=== PATIENT | female | born 1975 | race Caucasian/White ===

== ENCOUNTER 2018-03-18 09:57 | Emergency (ER) | payer BC, OTHER ==
[2018-03-18 10:02] VITALS: BMI 21.2
--- NOTE | 2018-03-18 10:33 | PDOC ---
History of Present Illness - General Chief Complaint: Nausea/Vomiting Stated Complaint: NAUSEA,VOMITING PREG? Time Seen by Provider: 03/18/18 10:03 - History of Present Illness Initial Comments: 03/18/18 10:30 42yo F hx vasovagal syncope presents to the ED with nausea and vomiting. Pt reports weeks of intermittent nausea and last night began to have vomiting. Reports 7-8 episodes of yellow NBNB emesis since last night after eating bread and cream cheese. with similar symptoms since 4 am. Pt reports gingerale helps with nausea. Feels pressure in epigastric and suprapubic area, not "pain but feels sensitive." Reports epigastric pain occurs only before emesis. No fevers or chills. No dysuria, or urgency. +frequency. Last BM yesterday. Denies other sxs of blurry vision, focal weakness/numbness, cp, sob, LE edema. +UPT here in the ED, pt states LMP was in January. Denies vaginal bleeding. Reports travel to in February, did not know she was at the time. Denies mosquito bites. Past History - Past Medical History Allergies/Adverse Reactions: Allergies Allergy/AdvReac Type Severity Reaction Status Date / Time No Known Allergies Allergy Verified 03/18/18 09:58 Home Medications: Ambulatory Orders NK [No Known Home Medication] 03/18/18 COPD: No Other medical history: VASOVAGAL - Suicide/Smoking/Psychosocial Hx Smoking History: Never smoked Have you smoked in the past 12 months: No Information on smoking cessation initiated: No Hx Alcohol Use: No Drug/Substance Use Hx: No Review of Systems - Review of Systems Comments:: 03/18/18 11:51 GENERAL/CONSTITUTIONAL: No fever or chills. No weakness. HEAD, EYES, EARS, NOSE AND THROAT: No change in vision. No ear pain or discharge. No sore throat. GASTROINTESTINAL: + nausea, vomiting, no diarrhea or constipation. +epigastric and suprapubic pain GENITOURINARY: No dysuria, +frequency. No vag bleeding. CARDIOVASCULAR: No chest pain or shortness of breath. RESPIRATORY: No cough, wheezing, or hemoptysis. MUSCULOSKELETAL: No joint or muscle swelling or pain. No neck or back pain. SKIN: No rash NEUROLOGIC: No headache, vertigo, loss of consciousness, or change in strength/ sensation. ENDOCRINE: No increased thirst. No abnormal weight change. HEMATOLOGIC/LYMPHATIC: No anemia, easy bleeding, or history of blood clots. ALLERGIC/IMMUNOLOGIC: No hives or skin allergy. *Physical Exam - Vital Signs Last Vital Signs Temp Pulse Resp BP Pulse Ox 98.3 F 86 20 105/77 100 03/18/18 09:57 03/18/18 09:57 03/18/18 09:57 03/18/18 09:57 03/18/18 09:57 - Physical Exam Comments: 03/18/18 11:52 GENERAL: Awake, alert, and fully oriented, in no acute distress EYES: PERRLA, EOMI, sclera anicteric, conjunctiva clear ENT: Nares patent, oropharynx clear without exudates. Moist mucosa NECK: Normal ROM, supple, no lymphadenopathy, JVD, or masses LUNGS: Breath sounds equal, clear to auscultation bilaterally. No wheezes, and no crackles HEART: Regular rate and rhythm, normal S1 and S2, no murmurs, rubs or gallops ABDOMEN: Soft, nontender, normoactive bowel sounds. No guarding, no rebound. No masses. : No CVAT. Pelvic deferred (no bleeding, lower abd ttp, pt preference) EXTREMITIES: Normal range of motion, no edema. No cords, erythema, or tenderness NEUROLOGICAL: Normal speech, cranial nerves intact, equal strength and sensation b/l SKIN: Warm, Dry, normal turgor, no rashes or lesions noted. Moderate Sedation - Procedure Monitoring Vital Signs: Procedure Monitoring Vital Signs Temperature 98.3 F 03/18/18 09:57 Pulse Rate 86 03/18/18 09:57 Respiratory Rate 20 03/18/18 09:57 Blood Pressure 105/77 03/18/18 09:57 O2 Sat by Pulse Oximetry (%) 100 03/18/18 09:57 ED Treatment Course - LABORATORY CBC & Chemistry Diagram: 03/18/18 11:11 03/18/18 11:11 Medical Decision Making - Medical Decision Making 03/18/18 12:02 42yo F presents to the ED with N/V, urinary frequency, epigastric and suprapubic discomfort found to be here in ED. Thus far, work up with UTI as well. It's possible pt has gastroenteritis as well as also with N /V. Plan for labs including lipase, quant HCG, TVUS, IVF, PO challenge, reassess. 03/18/18 14:28 Pt feels a lot better, tolerating PO Labs wnl, B-HCG 54K TVUS consistent with single IUP dated at 8 weeks, HR 179 Type and Screen A- with no antibodies Discussed with pt again if there was any vaginal bleeding or trauma Pt reports she did not know she was and bled 1 month ago and thought it was her period For this reason, will give pt socorro Reports 2 abortions in the past, both elective, prior to her last which was uncomplicated. Deny coming from [facility] All results explained to pt, she has follow up with her OB 1 week from today. 03/18/18 15:59 Pt s/p deny Feels much better. Clinically stable and well appearing I discussed the physical exam findings, ancillary test results and final diagnoses with the patient. I answered all of the patient's questions. The patient was satisfied with the care received and felt comfortable with the discharge plan and treatment plan. The patient will call their primary care physician within 24 hours to arrange follow-up and will return to the Emergency Department with any new, persistent or worsening symptoms. *DC/Admit/Observation/Transfer Diagnosis at time of Disposition: , Vomiting, UTI (urinary tract infection) - Discharge Dispostion Disposition: HOME Condition at time of disposition: Improved Decision to Admit order: No - Referrals - Patient Instructions Printed Discharge Instructions: DI for Vomiting -- Adult Additional Instructions: Follow up with your [facility] doctor within 1 week as scheduled Take the antibiotics as prescribed Drink plenty of fluids such as gatorade and stay hydrated Return to the emergency department if you have any new, worsening, or concerning symptoms - Post Discharge Activity - Attestations Physician Attestion: 03/18/18 16:12 I, Dr. Miguelito Hollins MD, attest that this document has been prepared under my direction and personally reviewed by me in its entirety. I further attest, that it accurately reflects all work, treatment, procedures and medical decision -making performed by me.
[2018-03-18] MEDS ORDERED: ONDANSETRON 4 MG/2 ML VIAL IVPUSH ONE (10:35)
[2018-03-18] MEDS ORDERED: SODIUM CHLORIDE 1,000 ML IV STA (10:35)
[2018-03-18 10:43] LABS: PH,URINE 5.5 (4.5-8); URINE APPEARANCE Clear; URINE BILIRUBIN 1+ (NEGATIVE); URINE COLOR Amber; URINE GLUCOSE (UA) Negative (NEGATIVE); URINE KETONE 2+ (NEGATIVE); URINE LEUK ESTERASE Negative (NEGATIVE); URINE NITRITE Negative (NEGATIVE); URINE PROTEIN 1+ (NEGATIVE); URINE UROBILINOGEN 0.2 (0.2-1.0)
[2018-03-18 10:47] LABS: HCG,QUALITATIVE URINE Positive
[2018-03-18 11:00] LABS: EPI CELLS 4+ /HPF; URINE BACTERIA 4+ /hpf (NEGATIVE)
[2018-03-18] MEDS ORDERED: ONDANSETRON 4 MG/2 ML VIAL ONE (11:09)
[2018-03-18 11:27] LABS: EOS % 0.4 % (0-4.5); HEMATOCRIT 42.3 % (32.4-45.2); HEMOGLOBIN 14.2 GM/dl (10.7-15.3); LYMPH % 6.1 % (8-40); MCH 32.6 pg (25.7-33.7); MCHC 33.5 g/dl (32.0-36.0); MEAN CELL VOLUME 97.5 fl (80-96); MEAN PLT VOLUME 7.1 fl (7.5-11.1); MONO % 5.3 % (3.8-10.2); NEUT % 88.2 % (42.8-82.8); PLATELET COUNT 247 K/MM3 (134-434); RBC 4.34 M/mm3 (3.60-5.2); RDW 11.3 % (11.6-15.6); WHITE BLOOD COUNT 7.5 K/mm3 (4.0-10.8)
[2018-03-18] MEDS ORDERED: NITROFURANTOIN MACROCRYSTAL 50 MG CAPSULE (FP) PO SCH (11:30)
[2018-03-18 11:38] LABS: ALBUMIN 4.1 g/dl (3.5-5.0); ALK PHOS 35 U/L (32-92); ANION GAP 9 MMOL/L (8-16); BILIRUBIN,TOTAL 0.6 mg/dl (0.2-1.0); BLOOD UREA NITROGEN 13 mg/dl (7-18); CALCIUM 8.5 mg/dl (8.4-10.2); CHLORIDE 100 mmol/L (98-107); CO2 26 mmol/L (22-28); CREATININE 0.7 mg/dl (0.6-1.3); GLUCOSE,RANDOM 99 mg/dl (74-106); MAGNESIUM 1.8 mg/dL (1.8-2.4); POTASSIUM 3.9 mmol/L (3.5-5.1); SGOT/AST 17 U/L (10-42); SGPT/ALT 19 U/L (10-40); SODIUM 135 mmol/L (136-145); TOT PROT 6.7 g/dl (6.4-8.3)
[2018-03-18] MEDS ORDERED: NITROFURANTOIN MACROCRYSTAL 50 MG CAPSULE (FP) ONE (12:28)
[2018-03-18] MEDS ORDERED: RHO(D) IMMUNE GLOBULIN 1,500 UNIT DISP.SYRIN IM ONE (14:10)
[2018-03-18 14:33] VITALS: BP 107/64; PULSE 63; TEMP 98.6
== END 2018-03-18 16:30 | disposition home or self-care (01) ==
LOC: FER 09:57
PROC: 3E033GC Introduction of Other Therapeutic Substance into Peripheral Vein, Percutaneous Approach (ICD-10-PCS; principal; 2018-03-18)
PROC: 3E023GC Introduction of Other Therapeutic Substance into Muscle, Percutaneous Approach (ICD-10-PCS; 2018-03-18)
PROC: 3E0337Z Introduction of Electrolytic and Water Balance Substance into Peripheral Vein, Percutaneous Approach (ICD-10-PCS; 2018-03-18)
DX: O26.891 Other specified pregnancy related conditions, first trimester (principal); Z3A.00 Weeks of gestation of pregnancy not specified; R11.10 Vomiting, unspecified; N39.0 Urinary tract infection, site not specified
CPT/HCPCS: 36415; 76817-TC; 80053; 81003; 81015; 83690; 83735; 84702; 84703; 85025; 86850; 86900; 86901; 86999; 87086; 99283-25; J1561; J7030